=== PATIENT | female | born 1990 | race American Indian/Alaskan Native ===

== ENCOUNTER 2018-09-08 22:25 | Emergency (ER) | payer OTHER ==
[2018-09-08 22:38] VITALS: RESP 14; TEMP 98.3
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
[2018-09-08 23:50] VITALS: BP 120/70; PULSE 70
[2018-09-09 02:42] VITALS: O2SAT 100
== END 2018-09-08 23:50 | disposition home or self-care (01) ==
LOC: C.ER 22:25
DX: M25.562 Pain in left knee (principal); M25.561 Pain in right knee; V89.2XXA Person injured in unspecified motor-vehicle accident, traffic, initial encounter